=== PATIENT | male | born 1955 | race African-American/Black ===

== ENCOUNTER 2021-07-14 05:05 | Inpatient (IN) | payer MEDICARE, MEDICAID ==
[~2021-07-14] VITALS: Ht 172.7 cm; Wt 80.7 kg
[2021-07-14] MEDS ORDERED: LEVETIRACETAM 1000MG PREMIX 100 ML IV ONE (07:00)
[2021-07-14 08:25] LABS: BASOPHILS % 0.5 % (0.0-2.0); EOSINOPHILS % 0.1 % (0.0-5.0); HEMATOCRIT. 41.2 % (42.0-52.0); HEMOGLOBIN. 14.3 g/dL (14.0-18.0); LYMPHOCYTES % 11.7 % (20.0-50.0); MEAN CORPUSCULAR HEMOGLOBIN 33.2 pg (28.0-32.0); MEAN CORPUSCULAR VOLUME 95.8 fL (80.0-94.0); MEAN PLATELET VOLUME 7.7 fl (7.4-10.4); MONOCYTES % 5.8 % (2.0-8.0); NEUTROPHILS % 81.9 % (40.0-76.0); PLATELET 242 x1000/uL (130-400); RED CELL DISTRIBUTION WIDTH 15.8 % (11.6-14.6)
[2021-07-14 08:31] LABS: CHLORIDE 106 mEq/L (98-107)
[2021-07-14 08:36] LABS: ETHANOL BLOOD < 10 mg/dL
[2021-07-14 08:47] LABS: CARBAMAZEPINE < 0.5 ug/mL (4-12); PHENOBARBITAL < 2.1 ug/mL (15.0-40.0); VALPROIC ACID < 3.0 ug/mL (50-100)
[2021-07-14 09:03] LABS: CLARITY URINE CLOUDY (CLEAR); COLOR URINE YELLOW (YELLOW); KETONES URINE TRACE (NEGATIVE); LEUKOCYTE ESTERASE URINE NEGATIVE (NEGATIVE); NITRITE URINE NEGATIVE (NEGATIVE); OCCULT BLOOD URINE 1+ (NEGATIVE); PROTEIN URINE 2+ (NEGATIVE); SPECIFIC GRAVITY URINE 1.019 (1.005-1.030); UROBILINOGEN URINE 0.2 E.U./dL (0.2-1.0)
[2021-07-14 09:43] LABS: *AMPHETAMINES SCREEN URINE NEGATIVE (NEGATIVE); *BARBITURATES SCREEN URINE NEGATIVE (NEGATIVE); *BENZODIAZEPINES SCREEN URINE NEGATIVE (NEGATIVE); CANNABINOID URINE SCREEN NEGATIVE (NEGATIVE); METHADONE URINE SCREEN NEGATIVE (NEGATIVE); OPIATES URINE SCREEN NEGATIVE (NEGATIVE); PHENCYCLIDINE URINE SCREEN NEGATIVE (NEGATIVE)
[2021-07-14 09:44] LABS: *COCAINE SCREEN URINE NEGATIVE (NEGATIVE)
[2021-07-14] MEDS ORDERED: LORAZEPAM 2MG/ML CPJ IV NR (11:30)
[2021-07-14] MEDS ORDERED: FOLIC ACID 1 MG, THIAMINE HCL 100 MG, MVI, ADULT NO.1 10 ML in DEXTROSE 5% WATER 1,000 ML IV NR (11:30)
[2021-07-14] MEDS ORDERED: LORAZEPAM 2MG/ML CPJ IV ONE (13:30)
[2021-07-14] MEDS ORDERED: CHLORDIAZEPOXIDE 25MG CAPSULE PO ONE (14:15)
[2021-07-14] MEDS ORDERED: GUAIFENESIN 200MG/10ML SUGAR FREE UDC PO PRN (15:15)
[2021-07-14] MEDS ORDERED: CLONIDINE 0.1MG TABLET PO PRN (15:15)
[2021-07-14] MEDS ORDERED: ACETAMINOPHEN 325MG TABLET PO PRN (15:15)
[2021-07-14] MEDS ORDERED: DOCUSATE SODIUM 100MG CAPSULE PO PRN (15:15)
[2021-07-14] MEDS ORDERED: KETOROLAC 30MG/ML VIAL IV PRN (15:15)
[2021-07-14] MEDS ORDERED: ONDANSETRON HCL 4MG/2ML INJ IV PRN (15:15)
[2021-07-14] MEDS ORDERED: MAGNESIUM/ALUMINUM HYDROXIDE/SIMETHICONE 30ML UDC PO PRN (15:15)
[2021-07-14] MEDS ORDERED: NITROGLYCERIN 0.4MG TABLET SL SL PRN (15:15)
[2021-07-14] MEDS ORDERED: LORAZEPAM 2MG/ML CPJ IV PRN (15:15)
[2021-07-14] MEDS ORDERED: IPRATROPIUM/ALBUTEROL 0.5-3(2.5)MG/3ML NEB NEB PRN (15:15)
[2021-07-14] MEDS ORDERED: NA PHOS,M-B/NA PHOS,DI-BA ENEMA 118ML PR PRN (15:15)
[2021-07-14] MEDS: PANTOPRAZOLE SODIUM 40 MG/VIAL IV SCH (15:30)
[2021-07-14 16:41] LABS: FOLIC ACID (FOLATE) SERUM 10.5 ng/mL (>5.38)
[2021-07-14] MEDS: ENOXAPARIN 40MG/0.4ML SYR SUBCUT SCH (17:54)
[2021-07-14] MEDS: DILTIAZEM HCL 60MG TABLET PO SCH ×2 (18:36→23:09)
[2021-07-14 22:00] VITALS: BP 131/76
[2021-07-14 22:03] VITALS: BP 131/76
[2021-07-14] MEDS: CHLORDIAZEPOXIDE 25MG CAPSULE PO SCH (22:42)
[2021-07-14] MEDS: ACETAMINOPHEN 325MG TABLET PO PRN (22:43)
[2021-07-15] VITALS (13 sets, daily range): BP systolic 88–144; BP diastolic 54–98
[2021-07-15] MEDS: CHLORDIAZEPOXIDE 25MG CAPSULE PO SCH ×3 (05:27→21:30)
[2021-07-15] MEDS: DILTIAZEM HCL 60MG TABLET PO SCH ×3 (06:28→17:09)
[2021-07-15 07:38] LABS: BASOPHILS % 0.6 % (0.0-2.0); EOSINOPHILS % 2.4 % (0.0-5.0); HEMATOCRIT. 35.9 % (42.0-52.0); HEMOGLOBIN. 12.3 g/dL (14.0-18.0); LYMPHOCYTES % 34.6 % (20.0-50.0); MEAN CORPUSCULAR HEMOGLOBIN 33.1 pg (28.0-32.0); MEAN CORPUSCULAR VOLUME 96.9 fL (80.0-94.0); MEAN PLATELET VOLUME 8.7 fl (7.4-10.4); MONOCYTES % 8.4 % (2.0-8.0); PLATELET 189 x1000/uL (130-400); RED CELL DISTRIBUTION WIDTH 15.8 % (11.6-14.6)
[2021-07-15 07:58] LABS: CHLORIDE 103 mEq/L (98-107)
[2021-07-15] MEDS ORDERED: KCL 20MEQ/100ML PREMIX 100 ML IV ONE ×2 (08:15→10:00)
[2021-07-15 08:17] LABS: PHOSPHORUS 2.9 mg/dL (2.5-4.9)
[2021-07-15] MEDS ORDERED: POTASSIUM CHLORIDE 20MEQ TABLET SR PO SCH (09:00)
[2021-07-15] MEDS ORDERED: MVI, ADULT NO.1 10 ML, FOLIC ACID 1 MG, THIAMINE HCL 100 MG in SODIUM CHLORIDE 0.9% 1,0... IV ONE (09:00)
[2021-07-15] MEDS: PANTOPRAZOLE SODIUM 40 MG/VIAL IV SCH (09:17)
[2021-07-15] MEDS ORDERED: POTASSIUM CHLORIDE INJ 40 MEQ in DEXT 5% WATER 250 ML IV SCH (10:00)
[2021-07-15] MEDS ORDERED: MVI, ADULT NO.1 10 ML, FOLIC ACID 1 MG, THIAMINE HCL 100 MG in SODIUM CHLORIDE 0.9% 1,0... IV SCH (11:30)
[2021-07-15] MEDS: ENOXAPARIN 40MG/0.4ML SYR SUBCUT SCH (17:09)
[2021-07-16] VITALS (13 sets, daily range): BP systolic 96–153; BP diastolic 48–83
[2021-07-16] MEDS: CHLORDIAZEPOXIDE 25MG CAPSULE PO SCH ×3 (06:03→21:11)
[2021-07-16] MEDS: DILTIAZEM HCL 60MG TABLET PO SCH ×4 (06:04→18:08)
[2021-07-16] MEDS: FAMOTIDINE 20MG TABLET PO SCH ×2 (08:58→21:11)
[2021-07-16 12:53] LABS: CHLORIDE 111 mEq/L (98-107)
[2021-07-16] MEDS: ENOXAPARIN 40MG/0.4ML SYR SUBCUT SCH (18:08)
[2021-07-17] VITALS (12 sets, daily range): BP systolic 94–161; BP diastolic 28–76
[2021-07-17] MEDS: CHLORDIAZEPOXIDE 25MG CAPSULE PO SCH ×3 (06:07→21:33)
[2021-07-17] MEDS: DILTIAZEM HCL 60MG TABLET PO SCH ×5 (06:09→23:33)
[2021-07-17] MEDS: ACETAMINOPHEN 325MG TABLET PO PRN ×2 (06:14→21:33)
[2021-07-17] MEDS: FAMOTIDINE 20MG TABLET PO SCH ×2 (08:27→21:33)
[2021-07-17] MEDS: ENOXAPARIN 40MG/0.4ML SYR SUBCUT SCH (17:28)
[2021-07-18] VITALS (12 sets, daily range): BP systolic 98–135; BP diastolic 36–76
[2021-07-18] MEDS: CHLORDIAZEPOXIDE 25MG CAPSULE PO SCH (05:31)
[2021-07-18] MEDS: ACETAMINOPHEN 325MG TABLET PO PRN ×2 (05:31→16:20)
[2021-07-18] MEDS: DILTIAZEM HCL 60MG TABLET PO SCH ×3 (05:31→18:38)
[2021-07-18] MEDS: FAMOTIDINE 20MG TABLET PO SCH ×2 (08:47→21:05)
[2021-07-18] MEDS ORDERED: METHYLPREDNISOLONE SOD SUCC 125 MG/2 ML VIAL IV NR (12:00)
[2021-07-18] MEDS: CHLORDIAZEPOXIDE 10MG CAPSULE PO SCH ×2 (13:54→21:05)
[2021-07-18] MEDS: ENOXAPARIN 40MG/0.4ML SYR SUBCUT SCH (16:19)
[2021-07-18] MEDS: COLCHICINE 0.6MG TABLET PO SCH (21:05)
[2021-07-19] VITALS (7 sets, daily range): BP systolic 99–119; BP diastolic 49–75
[2021-07-19] MEDS: DILTIAZEM HCL 60MG TABLET PO SCH ×3 (00:24→12:00)
[2021-07-19] MEDS: CHLORDIAZEPOXIDE 10MG CAPSULE PO SCH (05:43)
[2021-07-19] MEDS: FAMOTIDINE 20MG TABLET PO SCH (08:20)
[2021-07-19] MEDS: COLCHICINE 0.6MG TABLET PO SCH (08:20)
== END 2021-07-19 13:35 | disposition home health service (06) | DRG 100 ==
LOC: ER 05:05 → 3WST 13:31 → EDBEDREQSVC 13:39 → EDBEDREQTM 13:39 → EDBEDREQ 13:39 → SUPCPDRO 15:08 → ENRESERV 20:15 → 3WST 22:27
PROVIDERS: ADMIT Internal Medicine; ATTEND Internal Medicine
DX: G40.909 Epilepsy, unspecified, not intractable, without status epilepticus (principal); G92.8 Other toxic encephalopathy; F10.239 Alcohol dependence with withdrawal, unspecified; E87.5 Hyperkalemia; R74.01 Elevation of levels of liver transaminase levels; M10.9 Gout, unspecified; Z91.14 Patient's other noncompliance with medication regimen; Z20.822 Contact with and (suspected) exposure to COVID-19
CPT/HCPCS: 36415; 80048; 80053; 80156; 80165; 80184; 80185; 80305; 80320; 81003; 82140; 82607; 82746; 83540; 83550; 83735; 84100; 84443; 85025; 87426; 93005; 93970; 97161; 99285; C9113; J1650; J1953; J2060; J2930; J3411; J3480; J3490; J7030; J7060; J7070; G0480

== ENCOUNTER 2022-06-16 20:43 | Emergency (ER) | payer MEDICARE, MEDICAID ==
[~2022-06-16] VITALS: Ht 182.9 cm; Wt 91.0 kg
[~2022-06-16 20:43] MED LIST: ACET-2708 MT; ALLO100T PO; CHOL2000 PO; CYAN100096 PO; DILT180T11 PO; FOLI-43 PO; LEVE750T4 MT; LIDO700A15 TP; MULT-1146 PO; VITA100T PO
[2022-06-16] MEDS ORDERED: LORAZEPAM 2MG/ML CPJ IV ONE (22:30)
[2022-06-16] MEDS ORDERED: FOLIC ACID 1 MG, THIAMINE HCL 100 MG, MVI, ADULT NO.1 10 ML in DEXTROSE 5% WATER 1,000 ML IV ONE ×4 (22:30)
[2022-06-16] MEDS ORDERED: LEVETIRACETAM 500MG PREMIX 100 ML IV ONE (22:30)
[2022-06-16 23:30] LABS: BASOPHILS % 0.2 % (0.0-2.0); HEMATOCRIT. 45.3 % (42.0-52.0); HEMOGLOBIN. 15.6 g/dL (14.0-18.0); LYMPHOCYTES % 11.6 % (20.0-50.0); MEAN CORPUSCULAR HEMOGLOBIN 31.1 pg (28.0-32.0); MEAN CORPUSCULAR VOLUME 90.4 fL (80.0-94.0); MEAN PLATELET VOLUME 8.3 fl (7.4-10.4); MONOCYTES % 3.3 % (2.0-8.0); NEUTROPHILS % 84.9 % (40.0-76.0); PLATELET 212 x1000/uL (130-400); RED BLOOD CELL COUNT 5.01 mill/uL (4.7-6.1); RED CELL DISTRIBUTION WIDTH 14.7 % (11.6-14.6)
[2022-06-16 23:37] LABS: CHLORIDE 106 mEq/L (98-107)
[2022-06-16 23:46] LABS: ETHANOL BLOOD < 10 mg/dL
[2022-06-17 00:23] VITALS: BP 140/69
== END 2022-06-17 02:46 | disposition home or self-care (01) ==
LOC: ER 20:43
DX: G40.909 Epilepsy, unspecified, not intractable, without status epilepticus (principal); I10 Essential (primary) hypertension; M10.9 Gout, unspecified; F10.21 Alcohol dependence, in remission; Z91.14 Patient's other noncompliance with medication regimen
CPT/HCPCS: 36415; 70450; 80053; 80320; 83690; 85025; 96365; 96375; 99284; J1953; J2060; J3411; J3490; J7070; G0480